=== PATIENT | male | born 1985 | race Caucasian/White ===

== ENCOUNTER 2023-07-16 12:15 | Inpatient (IN) | payer SELFPAY ==
[2023-07-16 12:24] VITALS: BP 132/78; PULSE 104; RESP 18; TEMP 36.7; O2SAT 96; BMI 34.0
[2023-07-16 14:00] VITALS: BP 122/87; PULSE 173; RESP 13; O2SAT 96
--- NOTE | 2023-07-16 15:20 | PC.NURSE ---
REFUSED SCHEDULED WELLBUTRIN
[2023-07-16] MEDS: gabapentin 100 mg Capsule PO ×2 (15:23→20:50)
--- NOTE | 2023-07-16 15:31 | PC.NURSE ---
Reassessed patient's heart rate. Reading was 107. Patient does not appear to be in any distress
[2023-07-16 19:16] LABS: Amphetamines Screen Urine Negative (Negative); Barbiturates Screen Urine Negative (Negative); Benzodiazepines Screen Urine Negative (Negative); Cocaine Screen Urine Negative (Negative); Opiate Screen Urine Negative (Negative); PCP Screen Urine Negative (Negative); THC Screen Urine Positive (Negative)
[2023-07-16] MEDS: quetiapine 100 mg Tablet PO (20:50)
[2023-07-16] MEDS: haloperidol 5 mg Tablet PO (20:50)
[2023-07-16] MEDS: trazodone 50 mg Tablet PO (20:50)
[2023-07-16 21:16] VITALS: BP 100/65; PULSE 93; RESP 16; TEMP 36.7; O2SAT 96
[2023-07-17 06:00] VITALS: BP 132/83; PULSE 73; RESP 16; TEMP 36.4; O2SAT 96
[2023-07-17] MEDS: gabapentin 100 mg Capsule PO ×3 (09:02→20:12)
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
[2023-07-17 14:00] VITALS: BP 113/62; PULSE 133; RESP 16; TEMP 36.6; O2SAT 99
[2023-07-17 20:06] VITALS: BP 100/58; PULSE 85; RESP 13; TEMP 36.9; O2SAT 97
[2023-07-17] MEDS: trazodone 50 mg Tablet PO (20:12)
[2023-07-17] MEDS: paliperidone ER 3 mg Tablet PO (20:12)
[2023-07-17] MEDS: OLANZapine 5 mg ODT PO (20:12)
[2023-07-18 06:00] VITALS: BP 125/87; PULSE 111; RESP 18; TEMP 36.3; O2SAT 95
[2023-07-18] MEDS: gabapentin 100 mg Capsule PO ×2 (07:51→15:26)
[2023-07-18 14:00] VITALS: BP 125/85; PULSE 107; RESP 20; TEMP 36.6; O2SAT 96
--- NOTE | 2023-07-18 16:21 | W.PM.NPUPNS ---
Subjective NPU Subjective: 37 year old with a history of schizophrenia admitted with active psychosis. The patient had reported that he continued to hear voices but reported feeling better. The patient had endorsed having periods of manic symptoms with racing thoughts and decreased need for sleep lasting several days with reports of unusual behavior and increased grandiosity and irritability for several days. He also reported a history of mixed mood symptoms. He had reported having previously worked at various jobs in [place] while in [place]. He had reported that he had felt terrible on the Seroquel and Wellbutrin ended refused Wellbutrin. He reported no side effects from the Invega and expressed interest in considering a once a month shot to help with managing his moods. He had reported that he was unsure as if he could return to stay with his brother indefinitely as he had reported that he had apparently been accused of destroying property and may not be welcome there again. Mental Status Exam MSE Comments: He is a healthy male who appeared his stated age with improved eye contact and improved hygiene. His gait when observed appeared within normal limits. There was no evidence of any abnormal involuntary motor movements tics or tremors appreciated. His speech was monotone in quality and decreased in rate and normal in volume. His mood was described as depressed. His affect was blunted. His thought process was linear logical and goal-directed. His thought content showed evidence of suicidal ideation with no active plan. He denied any homicidal ideation. There was clear evidence of paranoia with some ideas of reference but no overt delusions noted. He did not appear to be responding to internal stimuli. His attention span was improved. His insight is impaired. His judgment is poor. His impulse control appeared limited. He was alert and oriented to person place and time. Vitals/I&O/Wt Last Vital Signs Temp 97.8 F 07/18/23 14:00 Pulse 107 H 07/18/23 14:00 Resp 20 H 07/18/23 14:00 BP 125/85 07/18/23 14:00 Pulse Ox 96 07/18/23 14:00 O2 Del Method Room Air 07/17/23 14:00 A&P Assessment and plan (1) Unspecified psychosis: (2) Schizophrenia: (3) Suicidal ideation: Plan 39-year-old male with a past history of schizophrenia with no recent drug use currently reporting psychosis, depression, and suicidal ideation. He was amenable to treatment and was willing to consider the change in medications which may be beneficial as he states that compliance with his medications currently had not helped. ?1. Encourage individual, group and milieu therapy. ?2.Recommend sober living treatment at the highest level of care to which the patient is willing to commit. 3.Continue q-15 minute checks for safety.? 4. increase invega to 6mg at night, d/c wellbutrin, and seroquel. Involuntary Hold Information 96 Hour Hold: 96 Hour Involuntary Admission: No Attestations NPU Medical Necessity Statement*: Inpatient hospitalization is medically necessary and deemed to ?be ?the clinically appropriate intervention ?at this time.? We will monitor/initiate medications and make changes as indicated.? The patient?s likely length of stay is 5-7days. Coding Level of Care Code Acute Code for Chg Fwd Diagnoses Unspecified psychosis F29 Schizophrenia F20.9 Suicidal ideation R45.851
[2023-07-18] MEDS: paliperidone ER 6 mg Tablet PO (20:00)
[2023-07-18] MEDS: trazodone 50 mg Tablet PO ×2 (20:00→21:23)
[2023-07-18 20:32] VITALS: BP 137/90; PULSE 88; RESP 18; TEMP 36.7; O2SAT 97
[2023-07-19 06:00] VITALS: BP 124/81; PULSE 97; RESP 17; TEMP 36.5; O2SAT 97
--- NOTE | 2023-07-19 08:02 | PC.NURSE ---
IN DAY ROOM DRINKING COFFEE. DENIES SI/HI AND AVH AT THIS TIME. PT IS OBSERVED HAVING A FLAT AFFECT AND DEPRESSED MOOD. RATES ANXIETY AND DEPRESSION 2/. PT DENIES ANY NEED FOR PRN MEDICATIONS THIS AM. PT REPORTS IT WAS HARD TO GO TO SLEEP LAST NIGHT BUT ONCE HE FELL ASLEEP HE SLEPT OKAY. ALL QUESTIONS WERE ANSWERED AND SUPPORT WAS VOICED. DENIES PAIN.
--- NOTE | 2023-07-19 13:59 | W.PM.NPUPNS ---
Subjective NPU Subjective: 37 year old with a history of schizophrenia admitted with active psychosis. The patient reports improvement in mood. He had reported that the voices had been substantially better and reported adequate sleep. He had reported that his mind was no longer clouded. He had expressed desire to consider Invega Sustenna but reported that he wished to return to [place] and would be willing to consider taking invega oral and returning to [place]. Patient had reported a history of mixed mood symptoms but stated that his depression was not prominent currently. Mental Status Exam MSE Comments: He is a healthy male who appeared his stated age with improved eye contact and improved hygiene. His gait when observed appeared within normal limits. There was no evidence of any abnormal involuntary motor movements tics or tremors appreciated. His speech was monotone in quality and decreased in rate and normal in volume. His mood was described as better. His affect was brighter. His thought process was linear logical and goal-directed. His thought content showed noevidence of suicidal ideation with no active plan. He denied any homicidal ideation. There was no overt paranoia and no delusional thinking. He did not appear to be responding to internal stimuli. His attention span was improved. His insight is improving. His judgment is improving. His impulse control appeared limited. He was alert and oriented to person place and time. Vitals/I&O/Wt Last Vital Signs Temp 97.7 F 07/19/23 06:00 Pulse 97 07/19/23 06:00 Resp 17 07/19/23 06:00 BP 124/81 07/19/23 06:00 Pulse Ox 97 07/19/23 06:00 O2 Del Method Room Air 07/18/23 20:32 A&P Assessment and plan (1) Unspecified psychosis: (2) Schizophrenia: (3) Suicidal ideation: Plan 37-year-old male with a past history of schizophrenia with no recent drug use currently reporting psychosis, depression, and suicidal ideation. He was amenable to treatment and was willing to consider the change in medications which may be beneficial as he states that compliance with his medications currently had not helped. ?1. Encourage individual, group and milieu therapy. ?2.Recommend sober living treatment at the highest level of care to which the patient is willing to commit. 3.Continue q-15 minute checks for safety.? 4 Continue invega 6mg at night with likely discharge in 1-2 days. Involuntary Hold Information 96 Hour Hold: 96 Hour Involuntary Admission: No Attestations NPU Medical Necessity Statement*: Inpatient hospitalization is medically necessary and deemed to ?be ?the clinically appropriate intervention ?at this time.? We will monitor/initiate medications and make changes as indicated.? The patient?s likely length of stay is 1-2days. Coding Level of Care Code Acute Code for Chg Fwd Diagnoses Unspecified psychosis F29 Schizophrenia F20.9 Suicidal ideation R45.851
[2023-07-19 14:00] VITALS: BP 127/74; PULSE 75; RESP 20; TEMP 36.9; O2SAT 95
[2023-07-19 19:55] VITALS: BP 142/89; PULSE 94; RESP 16; TEMP 36.6; O2SAT 95
[2023-07-19] MEDS: trazodone 50 mg Tablet PO (21:02)
[2023-07-19] MEDS: paliperidone ER 6 mg Tablet PO (21:02)
[2023-07-20 06:00] VITALS: BP 144/88; PULSE 80; RESP 16; TEMP 36.6; O2SAT 98
--- NOTE | 2023-07-20 08:29 | PC.NURSE ---
EATING BREAKFAST IN DAY ROOM. DENIES PAIN. DENIES SI/HI AND AVH AT THIS TIME. PT IS NOTED TO HAVE A FLAT AFFECT AND DEPRESSED MOOD. PT IS WANTING TO GET TO [place]. RATES ANXIETY 0/10 AND DEPRESSION 2/10. PT DENIES THE NEED FOR PRN MEDICATIONS AT THIS TIME. PT IS WANTING TO GET HIS INVEGA INJECTION. INFORMED PT THIS RN WILL SPEAK TO DR. CORTÉS THIS AM AND SEE WHAT THE PLAN IS. ALL QUESTIONS ANSWERED AND SUPPORT WAS VOICED.
--- NOTE | 2023-07-20 13:09 | P.NPUPN_ITS ---
Subjective NPU Subjective: Patient presented today reporting that he is doing okay. He reports that he is eager to had a home but was able to appreciate the need for us to create environment where he is going to have his medication while he is awaiting Medicaid in his state. He reported that he has a reasonable support system and so we can get the medications on board including the IM injection of Invega he feels optimistic he will be able to get things back on track when he leaves next week. Mental Status Exam MSE Comments: This is an overweight versus obese white male in hospital scrubs with adequate grooming and limited eye contact. His gait when observed appeared within normal limits. There was no evidence of any abnormal involuntary motor movements, tics or tremors appreciated. His speech was monotone in quality and decreased in rate and normal in volume. His mood was described as better. His affect was slightly subdued on the verge of euthymic. His thought process was linear logical and goal-directed. His thought content showed no evidence of suicidal ideation with no active plan. He denied any homicidal ideation. There was no overt paranoia and no delusional thinking. He did not appear to be responding to internal stimuli. His attention and concentration appeared intact and memory appeared reliable but none were formally tested. He is alert and oriented x 3. His insight and judgment appeared fair. His impulse control appeared limited. Vitals/I&O/Wt Last Vital Signs Temp 97.9 F 07/20/23 06:00 Pulse 80 07/20/23 06:00 Resp 16 07/20/23 06:00 BP 144/88 07/20/23 06:00 Pulse Ox 98 07/20/23 06:00 O2 Del Method Room Air 07/20/23 06:00 A&P Assessment and plan (1) Unspecified psychosis: (2) Schizophrenia: (3) Suicidal ideation: Plan 37-year-old male with a past history of schizophrenia with no recent drug use currently reporting psychosis, depression, and suicidal ideation. He was amenable to treatment and was willing to consider the change in medications w [facility] may be beneficial as he states that compliance with his medications currently had not helped. ?1. Encourage individual, group and milieu therapy. ?2.Recommend sober living treatment at the highest level of care to which the patient is willing to commit. 3.Continue q-15 minute checks for safety.? 4 Continue invega 6mg at night. Initiate Invega Sustenna 234 mg IM to the deltoid loading dose with a plan to give the next injection on Sunday or Sunday and discharge at that time with appropriate follow-up plans and hopefully assist him in getting back home. Involuntary Hold Information 96 Hour Hold: 96 Hour Involuntary Admission: No Attestations NPU Medical Necessity Statement*: Inpatient hospitalization is medically necessary and deemed to ?be ?the clinically appropriate intervention ?at this time.? We will monitor/initiate medications and make changes as indicated.? The patient?s likely length of stay is 3-4 days. Coding Level of Care Code Acute Code for Chg Fwd Diagnoses Unspecified psychosis F29 Schizophrenia F20.9 Suicidal ideation R45.851
[2023-07-20 14:00] VITALS: BP 119/78; PULSE 101; RESP 20; TEMP 37; O2SAT 95
--- NOTE | 2023-07-20 17:02 | PC.NURSE ---
NEW ORDERS RECEIVED TO GIVE 234 MG OF INVEGA SUSTENA IM NOW TIMES ONE DOSE GIVE IN DELTOID . EDUCATED PT ON NEW ORDERS, VERBALIZED UNDERSTANDING. SUPPORT VOICED.
[2023-07-20] MEDS: paliperidone palmitate 234 mg Syringe IM (18:07)
--- NOTE | 2023-07-20 18:22 | PC.NURSE ---
234 MG INVEGA INJECTION GIVEN IM. THIS PTS FIRST INJECTION. EDUCATION WAS PROVIDED. RECEIVED IN LEFT DELTOID ORDERED. TOLERATED WELL. ALL QUESTIONS ANSWERED AND SUPPORT VOICED.
[2023-07-20 20:06] VITALS: BP 135/86; PULSE 92; RESP 18; TEMP 36.6; O2SAT 98
[2023-07-20] MEDS: trazodone 50 mg Tablet PO (20:24)
[2023-07-20] MEDS: paliperidone ER 6 mg Tablet PO (20:24)
[2023-07-21 06:00] VITALS: BP 132/94; PULSE 87; RESP 18; O2SAT 97
[2023-07-21] MEDS: nystatin powder 15 gm Btl 1 APPLIC TOPICAL (10:20)
--- NOTE | 2023-07-21 11:32 | W.PM.NPUPNS ---
Subjective NPU Subjective: Patient presented today reporting that he is a little bored but is still focused and agreeable to the plan for getting him started on the Invega Sustenna prior to discharge at the beginning of the week. He reported some injection site soreness but otherwise reports that he is tolerating the injection thus far. He had some questions about when the oral might be discontinued but denied any side effects to the medication. Mental Status Exam MSE Comments: This is an overweight versus obese white male in hospital scrubs with adequate grooming and limited eye contact. His gait when observed appeared within normal limits. There was no evidence of any abnormal involuntary motor movements, tics or tremors appreciated. His speech was monotone in quality and decreased in rate and normal in volume. His mood was described as better. His affect was slightly subdued on the verge of euthymic. His thought process was linear logical and goal-directed. His thought content showed no evidence of suicidal ideation with no active plan. He denied any homicidal ideation. There was no overt paranoia and no delusional thinking. He did not appear to be responding to internal stimuli. His attention and concentration appeared intact and memory appeared reliable but none were formally tested. He is alert and oriented x 3. His insight and judgment appeared fair. His impulse control appeared limited. Vitals/I&O/Wt Last Vital Signs Temp 97.9 F 07/20/23 20:06 Pulse 87 07/21/23 06:00 Resp 18 07/21/23 06:00 BP 132/94 07/21/23 06:00 Pulse Ox 97 07/21/23 06:00 O2 Del Method Room Air 07/20/23 20:06 A&P Assessment and plan (1) Unspecified psychosis: (2) Schizophrenia: (3) Suicidal ideation: Plan 37-year-old male with a past history of schizophrenia with no recent drug use currently reporting psychosis, depression, and suicidal ideation. He was amenable to treatment and was willing to consider the change in medications which may be beneficial as he states that compliance with his medications currently had not helped. ?1. Encourage individual, group and milieu therapy. ?2.Recommend sober living treatment at the highest level of care to which the patient is willing to commit. 3.Continue q-15 minute checks for safety.? 4 Continue invega 6mg at night. Initiate Invega Sustenna 234 mg IM to the deltoid loading dose with a plan to give the next injection on Sunday or Sunday and discharge at that time with appropriate follow-up plans and hopefully assist him in getting back home. Involuntary Hold Information 96 Hour Hold: 96 Hour Involuntary Admission: No Attestations NPU Medical Necessity Statement*: Inpatient hospitalization is medically necessary and deemed to ?be ?the clinically appropriate intervention ?at this time.? We will monitor/initiate medications and make changes as indicated.? The patient?s likely length of stay is 2-3 days. Coding Level of Care Code Acute Code for Chg Fwd Diagnoses Unspecified psychosis F29 Schizophrenia F20.9 Suicidal ideation R45.851
[2023-07-21 14:00] VITALS: BP 120/77; PULSE 93; RESP 17; TEMP 36.6; O2SAT 97
[2023-07-21 19:45] VITALS: BP 120/86; PULSE 94; RESP 18; TEMP 36.8; O2SAT 95
[2023-07-21] MEDS: trazodone 50 mg Tablet PO (20:52)
[2023-07-21] MEDS: paliperidone ER 6 mg Tablet PO (20:52)
[2023-07-22 06:00] VITALS: BP 126/66; PULSE 91; RESP 18; O2SAT 96
[2023-07-22] MEDS: nystatin powder 30 gm Btl 1 APPLIC TOPICAL ×2 (08:37→18:36)
--- NOTE | 2023-07-22 11:34 | P.NPUPN_ITS ---
Subjective NPU Subjective: Patient presented today reporting that he is a little bored but starting to get optimistic about the plan to leave likely by Sunday. We discussed the different scenarios that could play out given his ultimate goal is to get back to [place]. We discussed working with the social work team when they return tomorrow on the different options and possibilities. We discussed giving him his second Invega injection prior to discharge. He denied any side effects to the medication. Mental Status Exam MSE Comments: This is an overweight versus obese white male in hospital scrubs with adequate grooming and limited eye contact. His gait when observed appeared within normal limits. There was no evidence of any abnormal involuntary motor movements, tics or tremors appreciated. His speech was monotone in quality and decreased in rate and normal in volume. His mood was described as better. His affect was slightly subdued on the verge of euthymic. His thought process was linear logical and goal-directed. His thought content showed no evidence of suicidal ideation with no active plan. He denied any homicidal ideation. There was no overt paranoia and no delusional thinking. He did not appear to be responding to internal stimuli. His attention and concentration appeared intact and memory appeared reliable but none were formally tested. He is alert and oriented x 3. His insight and judgment appeared fair. His impulse control appeared limited. Vitals/I&O/Wt Last Vital Signs Temp 98.2 F 07/21/23 19:45 Pulse 91 07/22/23 06:00 Resp 18 07/22/23 06:00 BP 126/66 07/22/23 06:00 Pulse Ox 96 07/22/23 06:00 O2 Del Method Room Air 07/22/23 06:00 Weight last 48 hrs Weight 129.727 kg A&P Assessment and plan (1) Unspecified psychosis: (2) Schizophrenia: (3) Suicidal ideation: Plan 37-year-old male with a past history of schizophrenia with no recent drug use currently reporting psychosis, depression, and suicidal ideation. He was amenable to treatment and was willing to consider the change in medications which may be beneficial as he states that compliance with his medications currently had not helped. ?1. Encourage individual, group and milieu therapy. ?2.Recommend sober living treatment at the highest level of care to which the patient is willing to commit. 3.Continue q-15 minute checks for safety.? 4 Continue invega 6mg at night. Initiated Invega Sustenna 234 mg IM to the deltoid loading dose 07/20/2023 with a plan to give the next injection on Sunday or Sunday and discharge at that time with appropriate follow-up plans and hopefully assist him in getting back home. Involuntary Hold Information 96 Hour Hold: 96 Hour Involuntary Admission: No Attestations NPU Medical Necessity Statement*: Inpatient hospitalization is medically necessary and deemed to ?be ?the clinically appropriate intervention ?at this time.? We will monitor/initiate medications and make changes as indicated.? The patient?s likely length of stay is 1-2 days. Coding Level of Care Code Acute Code for Chg Fwd Diagnoses Unspecified psychosis F29 Schizophrenia F20.9 Suicidal ideation R45.851
[2023-07-22 14:00] VITALS: BP 124/78; PULSE 120; RESP 16; TEMP 36.6; O2SAT 95
[2023-07-22] MEDS: acetaminophen 325 mg Tablet 650 MG PO (15:12)
[2023-07-22 20:10] VITALS: BP 149/77; PULSE 99; RESP 18; TEMP 36.5; O2SAT 94
[2023-07-22] MEDS: trazodone 50 mg Tablet PO (21:08)
[2023-07-22] MEDS: paliperidone ER 6 mg Tablet PO (21:08)
[2023-07-23 06:00] VITALS: BP 143/90; PULSE 69; RESP 18; O2SAT 95
--- NOTE | 2023-07-23 08:53 | PC.NURSE ---
IN DAY ROOM WATCHING TV. DENIES PAIN.. DENIES SI/HI AND AVH AT THIS TIME. PT STATES HIS FRIEND FABIAN IS GETTING EVERYTHING READY FOR THE PT TO GO TO [place] AND PT STATES HE IS READY TO GO. RATES ANXIETY AND DEPRESSION 0/10. ALL QUESTIONS ANSWERED AND SUPPORT VOICED.
[2023-07-23 14:00] VITALS: BP 132/90; PULSE 105; RESP 15; TEMP 36.9; O2SAT 95
--- NOTE | 2023-07-23 15:49 | W.PM.NPUPNS ---
Subjective NPU Subjective: Patient presented today reporting that he is feeling optimistic. He reports that he is talked to his girlfriend and she is planning on driving up from [place] by tomorrow afternoon. She had not left at this point and we discussed the drive time and that we would work with him on discharge when she arrived. He reports he is doing well with the Invega and we discussed making sure he has medications while he is awaiting his Medicaid becoming active in [place] as well as getting follow-up appointments. He denied any side effects of the medication. Mental Status Exam MSE Comments: This is an overweight versus obese white male in hospital scrubs with adequate grooming and limited eye contact. His gait when observed appeared within normal limits. There was no evidence of any abnormal involuntary motor movements, tics or tremors appreciated. His speech was monotone in quality and decreased in rate and normal in volume. His mood was described as better. His affect was slightly subdued on the verge of euthymic. His thought process was linear logical and goal-directed. His thought content showed no evidence of suicidal ideation with no active plan. He denied any homicidal ideation. There was no overt paranoia and no delusional thinking. He did not appear to be responding to internal stimuli. His attention and concentration appeared intact and memory appeared reliable but none were formally tested. He is alert and oriented x 3. His insight and judgment appeared fair. His impulse control appeared limited. Vitals/I&O/Wt Last Vital Signs Temp 98.4 F 07/23/23 14:00 Pulse 105 H 07/23/23 14:00 Resp 15 07/23/23 14:00 BP 132/90 07/23/23 14:00 Pulse Ox 95 07/23/23 14:00 O2 Del Method Room Air 07/23/23 06:00 Weight last 48 hrs Weight 129.727 kg A&P Assessment and plan (1) Unspecified psychosis: (2) Schizophrenia: (3) Suicidal ideation: Plan 37-year-old male with a past history of schizophrenia with no recent drug use currently reporting psychosis, depression, and suicidal ideation. He was amenable to treatment and was willing to consider the change in medications which may be beneficial as he states that compliance with his medications currently had not helped. ?1. Encourage individual, group and milieu therapy. ?2.Recommend sober living treatment at the highest level of care to which the patient is willing to commit. 3.Continue q-15 minute checks for safety.? 4 Continue invega 6mg at night. Initiated Invega Sustenna 234 mg IM to the deltoid loading dose 07/20/2023 with a plan to give the next injection tomorrow with tentative plan to discharge afterwards. Social work team working with significant other who is reportedly driving from [place] to [place] tomorrow. Involuntary Hold Information 96 Hour Hold: 96 Hour Involuntary Admission: No Attestations NPU Medical Necessity Statement*: Inpatient hospitalization is medically necessary and deemed to ?be ?the clinically appropriate intervention ?at this time.? We will monitor/initiate medications and make changes as indicated.? The patient?s likely length of stay is 1-2 days. Coding Level of Care Code Acute Code for Chg Fwd Diagnoses Unspecified psychosis F29 Schizophrenia F20.9 Suicidal ideation R45.851
[2023-07-23] MEDS: paliperidone ER 6 mg Tablet PO (19:58)
[2023-07-23] MEDS: trazodone 50 mg Tablet PO (19:58)
[2023-07-23 20:57] VITALS: BP 118/88; PULSE 98; RESP 18; TEMP 36.6; O2SAT 95
[2023-07-24 06:00] VITALS: BP 124/77; PULSE 104; RESP 18; TEMP 36.4; O2SAT 95
[2023-07-24] MEDS: paliperidone palmitate 156 mg Syringe IM (11:44)
[2023-07-24 12:17] VITALS: BP 124/77; PULSE 104; RESP 18; TEMP 36.4; O2SAT 95
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
== END 2023-07-24 13:31 | disposition home or self-care (01) | DRG 885 ==
PROVIDERS: Psychiatry & Neurology Psychiatry; Admitting Provider Psychiatry & Neurology Psychiatry; Visit Provider Psychiatry & Neurology Psychiatry
DX: F29 Unspecified psychosis not due to a substance or known physiological condition (principal); R45.851 Suicidal ideations; F20.9 Schizophrenia, unspecified; F32.A Depression, unspecified
CPT/HCPCS: 80306; 96372; 97150; 97165